=== PATIENT | male | born 1955 | race Hispanic/Latino ===

== ENCOUNTER 2020-11-13 06:38 | Day surgery (SDC) | payer MEDICARE ==
[2020-11-11 15:04] LABS: BASOPHILS % (AUTO) 0.9 % (0.0-5.0); EOSINOPHILS % (AUTO) 1.4 % (0.0-8.0); HEMATOCRIT 29.2 % (42-54); LYMPHOCYTES % (AUTO) 20.8 % (21.0-51.0); MEAN CORPUSCULAR HEMOGLOBIN 23.6 pg (27.0-33.0); MEAN CORPUSCULAR HGB CONC 29.8 g/dL (32.0-36.0); MEAN CORPUSCULAR VOLUME 79.3 fL (79-99); MONOCYTES % (AUTO) 6.8 % (3.0-13.0); NEUTROPHILS % (AUTO) 69.6 % (40.0-77.0); PLATELET COUNT (AUTO) 420 K/uL (130-400); RED BLOOD CELL COUNT(AUTO) 3.68 MIL/uL (4.50-6.20); RED CELL DISTRIBUTION WIDTH 14.6 % (11.0-15.5); WHITE BLOOD COUNT (AUTO) 9.7 K/uL (4.8-10.8)
[2020-11-11 15:18] LABS: INR 1.09 (0.85-1.15); PROTHROMBIN TIME 11.8 SEC (9.6-11.6)
[2020-11-11 15:20] LABS: PARTIAL THROMBOPLASTIN TIME 27.2 SEC (26.3-35.5)
[2020-11-11 15:29] LABS: ALBUMIN 3.4 g/dL (3.5-5.0); BILIRUBIN,TOTAL 0.3 mg/dL (0.2-1.0); POTASSIUM 4.5 mmol/L (3.5-5.1); TOTAL PROTEIN, SERUM 7.6 g/dL (6.0-8.3)
[2020-11-13] VITALS (15 sets, daily range): BP systolic 105–135; BP diastolic 33–57
[~2020-11-13] VITALS: Ht 165.1 cm; Wt 122.8 kg
[~2020-11-13 06:38] MED LIST: AMLO-258 PO; ATOR40TA69 PO; INVOK100TB PO; LOSA100T58 PO; METF-446 PO
[2020-11-13] MEDS ORDERED: 0.9%NACL 1000ML 1,000 ML IV ONE (08:51)
[2020-11-13] MEDS ORDERED: SUCCINYLCHOLINE 200MG/10ML SYR ONE (08:54)
[2020-11-13] MEDS ORDERED: LIDOCAINE PF 100MG/5ML (2%) SYRINGE 5ML ONE (08:54)
[2020-11-13] MEDS ORDERED: PROPOFOL 10 MG/ML 20ML VIAL IV ONE (08:55)
[2020-11-13] MEDS ORDERED: ROCURONIUM 10MG/1ML SYR 10 MG/ML ML ONE (08:55)
[2020-11-13] MEDS ORDERED: FENTANYL CITRATE PF 50 MCG/1 ML 2ML VIAL ONE ×2 (08:55→10:37)
[2020-11-13] MEDS ORDERED: CEFAZOLIN SODIUM 1 GM VIAL IVP ONE (09:28)
[2020-11-13] MEDS ORDERED: EPHEDRINE SULFATE 50 MG/ML AMPULE ONE (09:28)
[2020-11-13] MEDS ORDERED: IOHEXOL-350 50ML VIAL IV ONE (09:48)
[2020-11-13] MEDS ORDERED: MEPERIDINE-PF 25 MG/ML SYG ONE ×2 (10:03→12:35)
[2020-11-13] MEDS ORDERED: NEOSTIGMINE 5MG/5ML SYR IV ONE (10:27)
[2020-11-13] MEDS ORDERED: GLYCOPYRROLATE 1 MG/5 ML SYRINGE ONE (10:27)
[2020-11-13] MEDS ORDERED: PHENYLEPHRINE HCL 10 MG/ML 1ML VIAL IV ONE (10:28)
[2020-11-13] MEDS ORDERED: 0.9%NACL 10ML VIAL ONE (10:28)
[2020-11-13] MEDS ORDERED: SUGAMMADEX SODIUM 200 MG/2 ML VIAL IV ONE (10:36)
[2020-11-13] MEDS ORDERED: KETOROLAC 30MG VIAL (30MG/ML) ONE (12:27)
== END 2020-11-13 13:30 | disposition home or self-care (01) ==
LOC: DAH 06:38
PROVIDERS: ATTEND Urology Pediatric Urology
DX: C67.2 Malignant neoplasm of lateral wall of bladder (principal); Z20.822 Contact with and (suspected) exposure to COVID-19; C67.3 Malignant neoplasm of anterior wall of bladder; C67.5 Malignant neoplasm of bladder neck; N13.30 Unspecified hydronephrosis; I10 Essential (primary) hypertension; E11.9 Type 2 diabetes mellitus without complications; Z79.01 Long term (current) use of anticoagulants; Z79.899 Other long term (current) drug therapy; Z87.891 Personal history of nicotine dependence
CPT/HCPCS: 36415; 52240; 52332; 71045; 74420; 80053; 82948 ×2; 85025; 85610; 85730; 87635; 88305; 88341; 88342; 93005; A4215; A4221; A4222; A4223; A4346; A4354; A4358; A4663; A4930; A6260; C1758 ×2; C1769 ×2; C2617; C9803; J0330; J0690; J2001; J2175 ×2; J2370; J2704; J2710; J3010 ×2; J3490 ×2; J7030 ×2; Q9967; J1885